=== PATIENT | male | born 1970 | race Two or more races ===

== ENCOUNTER 2021-08-01 00:48 | Emergency (ER) | payer BC, OTHER ==
[~2021-08-01] VITALS: Ht 170.2 cm; Wt 100.0 kg
[2021-08-01] MEDS ORDERED: KETOROLAC 30MG/ML VIAL IV STA (03:33)
[2021-08-01] MEDS ORDERED: SODIUM CHLORIDE 0.9% 1,000 ML IV ONE (03:45)
[2021-08-01 04:10] LABS: CHLORIDE 104 mEq/L (98-107)
[2021-08-01 04:14] LABS: INR 0.9; PROTHROMBIN TIME 10.2 sec (9.6-11.0)
[2021-08-01 04:38] LABS: HEMATOCRIT. 45.8 % (42.0-52.0); HEMOGLOBIN. 16.2 g/dL (14.0-18.0); MEAN CORPUSCULAR HEMOGLOBIN 32.3 pg (28.0-32.0); MEAN CORPUSCULAR VOLUME 91.4 fL (80.0-94.0); MEAN PLATELET VOLUME 7.9 fl (7.4-10.4); PLATELET 209 x1000/uL (130-400); RED BLOOD CELL COUNT 5.01 mill/uL (4.7-6.1); RED CELL DISTRIBUTION WIDTH 12.3 % (11.6-14.6)
[2021-08-01 05:15] LABS: PLATELET ESTIMATE NORMAL
[2021-08-01 06:08] LABS: CLARITY URINE CLEAR (CLEAR); COLOR URINE YELLOW (YELLOW); KETONES URINE TRACE (NEGATIVE); LEUKOCYTE ESTERASE URINE NEGATIVE (NEGATIVE); NITRITE URINE NEGATIVE (NEGATIVE); OCCULT BLOOD URINE 1+ (NEGATIVE); PH URINE 5.5 (4.5-8.0); PROTEIN URINE NEGATIVE (NEGATIVE); SPECIFIC GRAVITY URINE 1.026 (1.005-1.030); UROBILINOGEN URINE 0.2 E.U./dL (0.2-1.0)
[2021-08-01] MEDS ORDERED: IBUP-2029 MT (09:07)
[2021-08-01 10:05] VITALS: BP 115/81
== END 2021-08-01 10:28 | disposition home or self-care (01) ==
LOC: ER 00:48
DX: N20.0 Calculus of kidney (principal); E66.9 Obesity, unspecified
CPT/HCPCS: 36415; 74176; 80053; 81003; 83690; 85025; 85610; 93005; 96361; 96374; 99285; J1885; J7030